=== PATIENT | female | born 1935 | race Caucasian/White ===

== ENCOUNTER 2017-12-16 21:58 | Emergency (ER) | payer MEDICARE, BC ==
[2017-12-16] MEDS ORDERED: hydrALAZINE 20 MG/ML SDV IVPUSH ONE (23:49)
--- NOTE | 2017-12-17 01:22 | EDM.PDOC ---
ED HPI GENERAL MEDICAL PROBLEM - General Chief Complaint: Cardiovascular Problem Stated Complaint: BLOOD PRESSURE SYMPTOMS [id number] Time Seen by Provider: 12/16/17 23:41 Source of Information: Reports: Patient, RN, RN Notes Reviewed History Limitations: Reports: No Limitations - History of Present Illness INITIAL COMMENTS - FREE TEXT/NARRATIVE: Pt to ER with c/o high blood pressure. She states she began having pressure in the right side of the head yesterday. She states she was seeing spots yesterday , but this has improved, also feeling pressure in eyes and ears during the night last night. Patient states she has had episodes of high blood pressure in the past. Took her BP at home and it was 190/90. Onset: Today, Sudden Headache Pain Score (Numeric/FACES): 2 - Related Data Allergies Allergy/AdvReac Type Severity Reaction Status Date / Time acetaminophen Allergy Rash Verified 11/23/15 09:48 [From Lorcet (hydrocodone)] fentanyl Allergy Other Verified 12/16/17 22:36 hydrocodone Allergy Rash Verified 11/23/15 09:48 [From Lorcet (hydrocodone)] latex Allergy Rash Verified 11/23/15 09:48 Home Meds: Home Meds Aspirin [Low Dose Aspirin EC] 81 mg PO DAILY 09/02/15 [History] Metoprolol Tartrate [Lopressor] 12.5 mg PO BID 09/02/15 [History] Sennosides/Docusate Sodium [Senna-S Tablet] 1 each PO BID 09/02/15 [History] Sertraline [Zoloft] 75 mg PO DAILY 09/02/15 [History] Acetaminophen 1,000 mg PO Q8H PRN 11/18/15 [History] Docusate Sodium [Colace] 100 mg PO DAILY 11/18/15 [History] Lactobacillus Combo No.10 [Probiotic] 1 cap PO DAILY 11/18/15 [History] Cardio Plus 2 tab PO DAILY 11/30/15 [History] Past Medical History HEENT History: Reports: Cataract, Hard of Hearing, Impaired Vision, Other (See Below) Other HEENT History: MENIERE'S DISEASE; WEARS CORRECTIVE LENSES; CATARACTS BILAT EYES Cardiovascular History: Reports: Hypertension Respiratory History: Reports: None Gastrointestinal History: Reports: Chronic Constipation, Colon Polyp, Diverticulosis Genitourinary History: Reports: UTI, Recurrent [employer] History: Reports: Fibroids Musculoskeletal History: Reports: Back Pain, Chronic, Osteoarthritis, Other ( See Below) Other Musculoskeletal History: SCOLIOSIS/KYPHOSCOLIOSIS Neurological History: Reports: TIA, Other (See Below) Other Neuro History: CEREBROVASCULAR DISEASE Psychiatric History: Reports: Anxiety, Depression Endocrine/Metabolic History: Reports: None Hematologic History: Reports: Iron Deficiency Immunologic History: Reports: None Oncologic (Cancer) History: Reports: Breast Dermatologic History: Reports: None - Infectious Disease History Infectious Disease History: Reports: Chicken Pox, Measles, Mumps, Other (See Below) Other Infectious Disease History: whooping cough - Past Surgical History Head Surgeries/Procedures: Reports: None HEENT Surgical History: Reports: Cataract Surgery Cardiovascular Surgical History: Reports: None Endocrine Surgical History: Reports: None Neurological Surgical History: Reports: Spinal Fusion Oncologic Surgical History: Reports: Mastectomy Other Oncologic Surgeries/Procedures: L 30 years ago Dermatological Surgical History: Reports: None Social & Family History - Tobacco Use Smoking Status *Q: Never Smoker - Caffeine Use Caffeine Use: Reports: Coffee - Recreational Drug Use Recreational Drug Use: No ED ROS GENERAL - Review of Systems Review Of Systems: ROS reveals no pertinent complaints other than HPI. ED EXAM, GENERAL - Physical Exam Exam: See Below Exam Limited By: No Limitations General Appearance: Alert, WD/WN, No Apparent Distress, Anxious Eye Exam: Bilateral Eye: EOMI, Normal Inspection Ears: Normal External Exam, Normal Canal, Hearing Grossly Normal, Normal TMs Nose: Normal Inspection Throat/Mouth: Normal Inspection, Normal Voice, No Airway Compromise Head: Atraumatic, Normocephalic Neck: Normal Inspection, Supple, Non-Tender, Full Range of Motion Respiratory/Chest: No Respiratory Distress, Lungs Clear, Normal Breath Sounds, No Accessory Muscle Use, Chest Non-Tender Cardiovascular: Normal Peripheral Pulses Peripheral Pulses: 2+: Radial (L), Radial (R) GI/Abdominal: Normal Bowel Sounds, Soft, Non-Tender (Female) Exam: Deferred Rectal (Female) Exam: Deferred Back Exam: Normal Inspection, Full Range of Motion, NT Extremities: Normal Inspection, Normal Range of Motion, Non-Tender, Normal Capillary Refill, No Pedal Edema Neurological: Alert, Oriented, CN II-XII Intact, Normal Cognition, Normal Gait, Normal Reflexes, No Motor/Sensory Deficits Psychiatric: Normal Affect, Anxious Skin Exam: Warm, Dry, Intact, Normal Color, No Rash Lymphatic: No Adenopathy Course - Vital Signs Last Recorded V/S: Last Vital Signs Temp 98.8 F 12/16/17 22:36 Pulse 95 12/17/17 01:30 Resp 16 12/17/17 01:30 BP 139/78 12/17/17 01:30 Pulse Ox 98 12/17/17 01:30 - Orders/Labs/Meds Meds: Medications Discontinued Medications Generic Name Dose Route Start Last Admin Trade Name Raven PRN Reason Stop Dose Admin Hydralazine HCl 10 mg 12/16/17 23:49 12/17/17 00:02 Apresoline IVPUSH 12/16/17 23:50 10 mg ONETIME ONE Administration Departure - Departure Time of Disposition: 01:21 Disposition: Home, Self-Care 01 Condition: Fair Clinical Impression: Hypertension Qualifiers: Hypertension type: unspecified Qualified Code(s): I10 - Essential (primary) hypertension Instructions: Hypertension, [id number] Forms: ED Department Discharge Additional Instructions: Take medications as directed Follow up with your primary care facility.
[2017-12-17 01:30] VITALS: BP 139/78
== END 2017-12-17 01:36 | disposition home or self-care (01) ==
LOC: DL.ED 21:58
DX: I10 Essential (primary) hypertension (principal); Z79.82 Long term (current) use of aspirin; Z79.899 Other long term (current) drug therapy; Z88.6 Allergy status to analgesic agent; Z91.040 Latex allergy status; Z88.8 Allergy status to other drugs, medicaments and biological substances
CPT/HCPCS: 96374; 99283; J0360

== ENCOUNTER 2019-09-08 05:34 | Day surgery (SDC) | payer MEDICARE, OTHER ==
[~2019-09-08 05:34] MED LIST: Midazolam 1 MG/ML 2 ML SDV ONE; fentaNYL 100 MCG/2 ML SDV ONE
[2019-09-08] MEDS ORDERED: Midazolam 1 MG/ML 2 ML SDV IV ONE (05:35)
[2019-09-08] MEDS ORDERED: fentaNYL 100 MCG/2 ML SDV IV ONE (05:35)
[2019-09-08] MEDS: Dextrose 5%-0.45% NaCl 1,000 ML IV SCH (05:49)
[2019-09-08] MEDS: fentaNYL 100 MCG/2 ML SDV IV ONE (06:34)
[2019-09-08] MEDS: Midazolam 1 MG/ML 2 ML SDV IV ONE (06:35)
--- NOTE | 2019-09-08 09:32 | OR ---
DATE: 09/08/2019 PROCEDURE: Esophagogastroduodenoscopy and multiple pinch biopsies. INSTRUMENT USED: GIF-HQ190 Olympus video panendoscope. PREMEDICATIONS: No oral or topical anesthesia used. Fentanyl 25 mcg intravenous, Versed 1 mg intravenous. Nasal O2 cannula. The procedure was done under pulse oximetry, BP recording, and campus monitor. INDICATION: The patient with persistent abdominal pain and diarrhea, unexplained and not responsive to medical measures, also massive progressive weight loss recently. Esophagogastroduodenoscopy is performed for detection of any active erosive lesions, malignancy also under consideration, H. pylori status to be determined, small bowel biopsies to be obtained for celiac disease, endoscopic hemostasis therapy if needed. PROCEDURE IN DETAIL: The scope was passed with ease. Adequate visualization of the esophagus was made from [id number] areas. No upper esophageal lesions identified. No distal esophageal stricture. No uphill or downhill esophageal varices. No Betsey-Rodriguez tear. No evidence of erosive esophagitis by [place] criteria. No esophageal polyp or tumor mass identified. Sliding hiatal hernia was noted. No proximal gastric varices noted. Gastric fundus examination by retroflexion showed no polypoid lesions. No gastric ulcer, malignant mass, or vascular ectasia identified. Duodenal bulb showed no ulcer. Visualized 2nd part of the duodenum was unremarkable. Multiple pinch biopsies were taken from the 2nd part of the duodenum, 4 in number, and also tissues were obtained from the duodenal bulb at 9 and 12 o'clock positions and sent for any histopathologic evidence of celiac disease. Multiple pinch biopsies were also obtained from the gastric antrum and proximal body and sent for PyloriTek test for H. pylori and histopathology. No bleeding was noted from any of the visualized areas at the completion of examination. Photographs were taken of the duodenal bulb, gastric antrum, fundus, and distal esophagus. IMPRESSION: Sliding hiatal hernia. The patient tolerated the procedure well. [facility] /[id number]
[2019-09-08 09:49] VITALS: BP 154/67; PULSE 78
== END 2019-09-08 08:51 | disposition home or self-care (01) ==
LOC: DL.ENDO 05:34
PROVIDERS: ATTEND Internal Medicine Gastroenterology
DX: K29.50 Unspecified chronic gastritis without bleeding (principal); K31.89 Other diseases of stomach and duodenum; K44.9 Diaphragmatic hernia without obstruction or gangrene; I10 Essential (primary) hypertension; F32.9 Major depressive disorder, single episode, unspecified; D72.820 Lymphocytosis (symptomatic); Z86.73 Personal history of transient ischemic attack (TIA), and cerebral infarction without residual deficits; Z98.890 Other specified postprocedural states; Z85.3 Personal history of malignant neoplasm of breast; Z86.010 Personal history of colon polyps
CPT/HCPCS: 43239; 87077; J2250; J3010; J7042

== ENCOUNTER 2019-09-10 06:04 | Day surgery (SDC) | payer MEDICARE, OTHER ==
[2019-09-10] MEDS ORDERED: Midazolam 1 MG/ML 2 ML SDV IV ONE ×6 (06:05→07:07)
[2019-09-10] MEDS ORDERED: fentaNYL 100 MCG/2 ML SDV IV ONE ×2 (06:05→06:47)
[2019-09-10] MEDS ORDERED: Dextrose 5%-0.45% NaCl 1,000 ML IV SCH (06:20)
--- NOTE | 2019-09-10 12:06 | OR ---
DATE: 09/10/2019 PROCEDURES: Total colonoscopy and multiple pinch biopsies. INSTRUMENT USED: PCF-H190DL Olympus video colonoscope. PREMEDICATIONS: Fentanyl 50 mcg intravenous, Versed 3 mg intravenous, nasal O2 cannula. The procedure was done under pulse oximetry, BP recording, and rn relief charge. INDICATION: The patient with chronic diarrhea and progressive weight loss, unexplained and not responsive to medical measures. Colonoscopic examination is done for detection of any polypoid lesions and removal, biopsies to be obtained for any evidence of microscopic colitis, endoscopic hemostasis therapy if needed. DESCRIPTION OF PROCEDURE: Initial rectal exam was unremarkable. Rigid anoscopy was normal. The colonoscope was passed with relative ease up to the ileocecal area. Photographs were taken of the normal-appearing cecum, identified by appendiceal orifice with some thin-lipped ileocecal folds, preventing further advancement of the instrument to visualize terminal ileum. No bleeding was noted from any of the visualized areas at the commencement of the examination. There was large amount of liquid to semi-liquid dark-black fecal material that had to be aspirated. The colon was found to be long and redundant. The bowel preparation was found to be adequate, [place] scale 2 in all the areas, total score 6. No stricture. No vascular ectasia. No large isolated ulcerations seen. No evidence of diffuse inflammatory bowel disease in the form of friability, contact bleeding, or ulcerations. No polyp or tumor mass identified. Probing the proximal sides of folds and flexures using adequate distention and clearing up the stool material, withdrawal of the scope was made. Multiple pinch biopsies were obtained from the normal-appearing mucosa of the mid transverse colon, mid descending colon, and rectosigmoid, and sent for any histopathologic evidence of microscopic colitis. No bleeding was noted from any of the visualized areas at the completion of examination. IMPRESSION: Normal study. The patient tolerated the procedure well. [facility] /[id number]
[2019-09-10 12:27] VITALS: PULSE 70
[2019-09-10 12:28] VITALS: BP 139/76
== END 2019-09-10 10:30 | disposition home or self-care (01) ==
LOC: DL.ENDO 06:04
PROVIDERS: ATTEND Internal Medicine Gastroenterology
DX: K52.9 Noninfective gastroenteritis and colitis, unspecified (principal); I10 Essential (primary) hypertension; R63.4 Abnormal weight loss; F32.9 Major depressive disorder, single episode, unspecified; Z85.3 Personal history of malignant neoplasm of breast; Z98.890 Other specified postprocedural states; Z86.010 Personal history of colon polyps; Z86.73 Personal history of transient ischemic attack (TIA), and cerebral infarction without residual deficits; Z68.20 Body mass index [BMI] 20.0-20.9, adult
CPT/HCPCS: 45380; J2250; J3010; J7042; 88305